=== PATIENT | male | born 1955 | race Caucasian/White ===

== ENCOUNTER 2019-01-28 11:07 | Day surgery (SDC) | payer MEDICARE ==
[~2019-01-28 11:07] MED LIST: MYDRIACYL ONE; NEOFRIN ONE
[2019-01-28] MEDS ORDERED: NEOFRIN OD ONE (11:19)
[2019-01-28] MEDS ORDERED: IOPIDINE OD ONE (11:19)
[2019-01-28] MEDS ORDERED: MYDRIACYL OD ONE (11:20)
[2019-01-28 14:39] VITALS: BP 114/92
== END 2019-01-28 13:51 | disposition home or self-care (01) ==
LOC: OR 11:07
PROVIDERS: ATTEND Specialist
DX: H26.491 Other secondary cataract, right eye (principal); E78.00 Pure hypercholesterolemia, unspecified; I10 Essential (primary) hypertension; Z87.891 Personal history of nicotine dependence; Z91.041 Radiographic dye allergy status; Z79.899 Other long term (current) drug therapy; Z98.41 Cataract extraction status, right eye; Z98.42 Cataract extraction status, left eye; Z98.890 Other specified postprocedural states; Z88.8 Allergy status to other drugs, medicaments and biological substances

== ENCOUNTER 2019-02-10 10:44 | Day surgery (SDC) | payer MEDICARE ==
[~2019-02-10 10:44] MED LIST changes: +IOPIDINE OS ONE; -MYDRIACYL ONE; +MYDRIACYL OS ONE; -NEOFRIN ONE; +NEOFRIN OS ONE
[2019-02-10] MEDS ORDERED: IOPIDINE ONE (11:04)
[2019-02-10] MEDS ORDERED: NEOFRIN ONE (11:05)
[2019-02-10] MEDS ORDERED: MYDRIACYL ONE (11:06)
[2019-02-10] MEDS ORDERED: MYDRIACYL OS ONE (11:20)
[2019-02-10] MEDS ORDERED: IOPIDINE OS ONE (11:20)
[2019-02-10] MEDS ORDERED: NEOFRIN OS ONE (11:20)
[2019-02-10 12:16] VITALS: BP 111/77
== END 2019-02-10 10:45 | disposition home or self-care (01) ==
LOC: OR 10:44
PROVIDERS: ATTEND Specialist
DX: H26.492 Other secondary cataract, left eye (principal); E78.00 Pure hypercholesterolemia, unspecified; I10 Essential (primary) hypertension; Z87.891 Personal history of nicotine dependence; Z91.041 Radiographic dye allergy status; Z79.899 Other long term (current) drug therapy; Z88.8 Allergy status to other drugs, medicaments and biological substances; Z98.41 Cataract extraction status, right eye; Z98.42 Cataract extraction status, left eye; Z98.890 Other specified postprocedural states